=== PATIENT | male | born 1965 | race American Indian/Alaskan Native ===

== ENCOUNTER 2020-12-18 08:11 | Emergency (ER) | payer MEDICARE ==
[2020-12-18] MEDS ORDERED: dexAMETHasone 20 MG/5 ML VIAL IM ONE (09:19)
[2020-12-18] MEDS ORDERED: KETOROLAC 30 MG/1 ML INJ IM ONE (09:19)
--- NOTE | 2020-12-18 09:33 | Emergency Department Report ---
ED Neck Pain/Injury HPI - General Chief Complaint: Neck Pain/Injury Stated Complaint: SHOULDER / NECK PAIN Time Seen by Provider: 12/18/20 09:19 Mode of arrival: Ambulatory Limitations: No Limitations - History of Present Illness Initial Comments: 55-year-old -[place] male who is visiting from [place] presents to the emergency room complaining of right side neck pain that radiates to his right shoulder for the last 2 days. Patient states that he had lifted a bag and felt a pull of his neck. Patient reports that he tried taking his oxycodone 10/325 without relief. Patient admits that he has a history of degenerative disc disease and cervical spine surgery. Patient states that he is on gabapentin ibuprofen and oxycodone. Patient is followed by pain management Dr. Darling in [place]. Patient reports that in the past he has had steroid and a muscle relaxant that has helped. Patient denies any new trauma except lifting a heavy object. Patient denies any fever chills no headache no numbness or tingling to his hands no weakness. MD Complaint: neck pain - Related Data Previous Rx's Medication Instructions Recorded Last Taken Type methOCARBAMOL [Robaxin TAB] 500 mg PO BID PRN 10 Days #20 tab 12/18/20 Unknown Rx predniSONE [Deltasone] 20 mg PO QDAY #5 tab 12/18/20 Unknown Rx Allergies Allergy/AdvReac Type Severity Reaction Status Date / Time No Known Allergies Allergy Unverified 12/18/20 08:13 ED Review of Systems ROS: Stated complaint: SHOULDER / NECK PAIN Other details as noted in HPI Comment: All other systems reviewed and negative ED Past Medical Hx - Past Medical History Previous Medical History?: Yes Hx of Cancer: Yes (colon) Additional medical history: Cervical spine pain, DJD - Surgical History Past Surgical History?: Yes Additional Surgical History: Cervical spine with instrumentation, Colon resection - Social History Smoking Status: Former Smoker Substance Use Type: Alcohol, Prescribed - Medications Home Medications: Home Medications Medication Instructions Recorded Confirmed Last Taken Type methOCARBAMOL [Robaxin TAB] 500 mg PO BID PRN 10 Days #20 tab 12/18/20 Unknown Rx predniSONE [Deltasone] 20 mg PO QDAY #5 tab 12/18/20 Unknown Rx ED Physical Exam - General Limitations: No Limitations General appearance: alert - Head Head exam: Present: atraumatic, normocephalic - Eye Eye exam: Present: normal appearance - ENT ENT exam: Present: normal exam, normal external ear exam - Neck Neck exam: Present: tenderness (Right paraspinal cervical tenderness), full ROM, other (Very large deep posterior cervical scar) - Respiratory Respiratory exam: Absent: accessory muscle use - Cardiovascular Cardiovascular Exam: Present: regular rate - Extremities Exam Extremities exam: Present: normal inspection, full ROM - Back Exam Back exam: Present: normal inspection - Neurological Exam Neurological exam: Present: alert, oriented X3, normal gait - Psychiatric Psychiatric exam: Present: normal affect, normal mood - Skin Skin exam: Present: warm, dry, intact, normal color. Absent: rash ED Course Vital Signs 12/18/20 12/18/20 08:17 08:49 Temperature 98.9 F Pulse Rate 53 L 58 L Respiratory 16 19 Rate Blood Pressure 133/76 Blood Pressure 132/78 [Left] O2 Sat by Pulse 97 99 Oximetry ED Medical Decision Making - Medical Decision Making 55-year-old -[place] male who is visiting from [place] presents to the emergency room complaining of right side neck pain that radiates to his right shoulder for the last 2 days. Patient states that he had lifted a bag and felt a pull of his neck. Patient reports that he tried taking his oxycodone 10/325 without relief. Patient admits that he has a history of degenerative disc disease and cervical spine surgery. Patient states that he is on gabapentin ibuprofen and oxycodone. Patient is followed by pain management Dr. Darling in [place]. Patient reports that in the past he has had steroid and a muscle relaxant that has helped. Patient denies any new trauma except lifting a heavy object. Patient denies any fever chills no headache no numbness or tingling to his hands no weakness. Patient comes in with acute on chronic neck pain with no recent injury. Patient was given a Toradol injection as well as a steroid injection. Discussed with patient to be discharged home on [facility] and to follow-up with his pain management provider and orthopedist. Patient verbalized understanding Critical care attestation.: If time is entered above; I have spent that time in minutes in the direct care of this critically ill patient, excluding procedure time. ED Disposition Clinical Impression: Chronic neck pain, Degenerative disc disease, cervical Disposition: DC- TO HOME OR SELFCARE Is pt being admited?: No Does the pt Need Aspirin: No Condition: Stable Instructions: Degenerative Disk Disease Additional Instructions: Take medication as prescribed. Increase your fluid intake. Rest. Follow-up with your pain specialist and your risk specialist. Prescriptions: predniSONE [Deltasone] 20 mg PO QDAY #5 tab methOCARBAMOL [Robaxin TAB] 500 mg PO BID PRN 10 Days #20 tab PRN Reason: Muscle Spasm Referrals: PRIMARY CARE,MD [Primary Care Provider] - 3-5 Days Your, pain management provider [Other] - 3-5 Days
[2020-12-18 10:30] VITALS: BP 140/82
== END 2020-12-18 10:30 | disposition home or self-care (01) ==
LOC: ED 08:11
DX: M50.30 Other cervical disc degeneration, unspecified cervical region (principal); Z98.890 Other specified postprocedural states; Z79.899 Other long term (current) drug therapy; Z87.891 Personal history of nicotine dependence
CPT/HCPCS: 96372; 99282; J1100; J1885